=== PATIENT | female | born 1965 | race African-American/Black ===

== ENCOUNTER 2018-09-05 09:52 | Emergency (ER) | payer MEDICAID ==
[~2018-09-05] VITALS: Ht 162.6 cm; Wt 114.0 kg
[2018-09-05] MEDS ORDERED: SODIUM CHLORIDE 0.9% 1,000 ML IV ONE (10:45)
[2018-09-05] MEDS ORDERED: FAMOTIDINE 20MG/2ML VIAL IV STA (10:45)
[2018-09-05] MEDS ORDERED: MORPHINE SULFATE 4 MG/ML CPJ (NOT FOR IM USE) IV STA (11:16)
[2018-09-05 11:18] LABS: EOSINOPHILS % 2.8 % (0.0-5.0); HEMATOCRIT. 38.6 % (36.0-48.0); HEMOGLOBIN. 12.3 g/dL (12.0-16.0); LYMPHOCYTES % 39.7 % (20.0-50.0); MEAN CORPUSCULAR HEMOGLOBIN 25.9 pg (28.0-32.0); MEAN CORPUSCULAR VOLUME 80.8 fL (81.0-99.0); MEAN PLATELET VOLUME 8.7 fl (7.4-10.4); MONOCYTES % 5.5 % (2.0-8.0); PLATELET 259 x1000/uL (130-400); RED BLOOD CELL COUNT 4.77 mill/uL (4.2-5.4)
[2018-09-05 11:19] LABS: CLARITY URINE CLEAR (CLEAR); COLOR URINE YELLOW (YELLOW); KETONES URINE NEGATIVE (NEGATIVE); LEUKOCYTE ESTERASE URINE NEGATIVE (NEGATIVE); NITRITE URINE NEGATIVE (NEGATIVE); OCCULT BLOOD URINE NEGATIVE (NEGATIVE); PROTEIN URINE NEGATIVE (NEGATIVE); SPECIFIC GRAVITY URINE 1.017 (1.005-1.030)
[2018-09-05 11:25] LABS: CHLORIDE 104 mEq/L (98-107)
[2018-09-05 11:29] LABS: ETHANOL BLOOD < 10 mg/dL
[2018-09-05 12:11] LABS: *AMPHETAMINES SCREEN URINE NEGATIVE (NEGATIVE); *BARBITURATES SCREEN URINE NEGATIVE (NEGATIVE); *BENZODIAZEPINES SCREEN URINE NEGATIVE (NEGATIVE); *COCAINE SCREEN URINE NEGATIVE (NEGATIVE); METHADONE URINE SCREEN NEGATIVE (NEGATIVE)
[2018-09-05 12:12] LABS: CANNABINOID URINE SCREEN NEGATIVE (NEGATIVE); OPIATES URINE SCREEN NEGATIVE (NEGATIVE); PHENCYCLIDINE URINE SCREEN NEGATIVE (NEGATIVE)
[2018-09-05 16:45] VITALS: BP 136/73
== END 2018-09-05 16:52 | disposition home or self-care (01) ==
LOC: ER 09:52
DX: R10.0 Acute abdomen (principal); M25.522 Pain in left elbow; I10 Essential (primary) hypertension; E66.9 Obesity, unspecified; Z68.41 Body mass index [BMI] 40.0-44.9, adult
CPT/HCPCS: 36415; 73080; 76705; 80053; 80305; 80320; 81003; 81025; 83690; 85025; 85610; 96374; 96375; 99284; J2270; J3490; J7030; G0480

== ENCOUNTER 2018-10-19 10:28 | Emergency (ER) | payer MEDICAID ==
[~2018-10-19] VITALS: Ht 160 cm; Wt 114.0 kg
[2018-10-19] MEDS ORDERED: HYDROCODONE/ACETAMINOPHEN 5/325MG TABLET PO ONE (13:30)
[2018-10-19 13:32] VITALS: BP 122/82
== END 2018-10-19 15:11 | disposition home or self-care (01) ==
LOC: ER 10:51
DX: M17.12 Unilateral primary osteoarthritis, left knee (principal)
CPT/HCPCS: 73560; 99283

== ENCOUNTER 2019-03-22 08:23 | Emergency (ER) | payer MEDICAID ==
[~2019-03-22] VITALS: Ht 160 cm; Wt 116.0 kg
[2019-03-22] MEDS ORDERED: KETOROLAC 60MG/2ML VIAL IM ONE (09:00)
[2019-03-22 09:11] VITALS: BP 144/81
== END 2019-03-22 09:13 | disposition home or self-care (01) ==
LOC: ER 08:23
DX: M25.562 Pain in left knee (principal); M25.561 Pain in right knee; G89.29 Other chronic pain
CPT/HCPCS: 96372; 99283; A4217; J1885; Z7610

== ENCOUNTER 2019-05-17 08:25 | Emergency (ER) | payer MEDICAID ==
[~2019-05-17] VITALS: Ht 160 cm; Wt 115.0 kg
[2019-05-17 08:32] VITALS: BP 150/74
[2019-05-17] MEDS ORDERED: KETOROLAC 30MG/ML VIAL IM ONE (10:00)
[2019-05-17] MEDS ORDERED: ACETAMINOPHEN 325MG TABLET PO ONE ×2 (13:00→13:15)
[2019-05-17] MEDS ORDERED: ACETAMINOPHEN 325MG TABLET ONE (13:22)
== END 2019-05-17 13:41 | disposition home or self-care (01) ==
LOC: ER 08:25
DX: M79.672 Pain in left foot (principal)
CPT/HCPCS: 73630; 93971; 96372; 99284; J1885; Z7610

== ENCOUNTER 2019-07-24 08:37 | Emergency (ER) | payer MEDICAID ==
[~2019-07-24] VITALS: Ht 160 cm; Wt 113.0 kg
[2019-07-24 08:59] VITALS: BP 102/40
[2019-07-24] MEDS ORDERED: KETOROLAC 60MG/2ML VIAL IM ONE (09:45)
== END 2019-07-24 10:13 | disposition home or self-care (01) ==
LOC: ER 09:03
DX: M17.12 Unilateral primary osteoarthritis, left knee (principal); E66.01 Morbid (severe) obesity due to excess calories; Z68.41 Body mass index [BMI] 40.0-44.9, adult; I10 Essential (primary) hypertension
CPT/HCPCS: 96372; 99283; J1885

== ENCOUNTER 2019-10-24 12:09 | Emergency (ER) | payer MEDICAID ==
[~2019-10-24] VITALS: Ht 162.6 cm; Wt 113.0 kg
[2019-10-24] MEDS ORDERED: SODIUM CHLORIDE 0.9% 1,000 ML IV ONE (12:42)
[2019-10-24 13:03] LABS: BASOPHILS % 0.4 % (0.0-2.0); EOSINOPHILS % 2.9 % (0.0-5.0); HEMATOCRIT. 38.5 % (36.0-48.0); HEMOGLOBIN. 12.5 g/dL (12.0-16.0); LYMPHOCYTES % 47.5 % (20.0-50.0); MEAN CORPUSCULAR HEMOGLOBIN 25.4 pg (28.0-32.0); MEAN CORPUSCULAR VOLUME 78.2 fL (81.0-99.0); MEAN PLATELET VOLUME 8.7 fl (7.4-10.4); MONOCYTES % 7.3 % (2.0-8.0); NEUTROPHILS % 41.9 % (40.0-76.0); PLATELET 262 x1000/uL (130-400); RED BLOOD CELL COUNT 4.92 mill/uL (4.2-5.4); RED CELL DISTRIBUTION WIDTH 14.6 % (11.6-14.6)
[2019-10-24 13:08] LABS: CHLORIDE 106 mEq/L (98-107)
[2019-10-24 13:20] LABS: T4 FREE 1.14 ng/dL (0.76-1.46)
[2019-10-24 14:45] VITALS: BP 120/75
== END 2019-10-24 15:21 | disposition home or self-care (01) ==
LOC: ER 12:09
DX: R53.1 Weakness (principal); I10 Essential (primary) hypertension; E03.9 Hypothyroidism, unspecified
CPT/HCPCS: 36415; 71045; 80053; 84439; 84443; 84484; 85025; 93005; 99285; J7030

== ENCOUNTER 2024-02-14 09:31 | Emergency (ER) | payer MEDICAID ==
[~2024-02-14] VITALS: Ht 162.6 cm; Wt 104.3 kg
[2024-02-14 09:55] VITALS: O2SAT 99
[2024-02-14 11:37] LABS: CHLORIDE 108 mEq/L (98-107); POTASSIUM 4.1 mEq/L (3.5-5.1); SODIUM 143 mEq/L (136-145)
[2024-02-14 11:38] LABS: CALCIUM 9.2 mg/dL (8.7-10.4); CARBON DIOXIDE 29 mEq/L (21-32)
[2024-02-14 11:43] LABS: CREATININE 1.1 mg/dL (0.6-1.0); GLUCOSE 87 mg/dL (70-105); UREA NITROGEN BLOOD 10 mg/dL (9-23)
[2024-02-14] MEDS ORDERED: IBUP-2028 MT (11:52)
[2024-02-14 13:13] VITALS: TEMP 98.3
[2024-02-14] MEDS: ACETAMINOPHEN 325MG TABLET PO ONE (13:13)
[2024-02-14 13:14] VITALS: BP 152/92; PULSE 83; RESP 16
[2024-02-14] MEDS: KETOROLAC 30MG/ML VIAL IM ONE (13:14)
== END 2024-02-14 13:27 | disposition home or self-care (01) ==
LOC: ER 09:31
DX: S83.412A Sprain of medial collateral ligament of left knee, initial encounter (principal); I10 Essential (primary) hypertension; Z90.710 Acquired absence of both cervix and uterus; W18.30XA Fall on same level, unspecified, initial encounter; Y93.89 Activity, other specified; Y92.89 Other specified places as the place of occurrence of the external cause; Y99.8 Other external cause status
CPT/HCPCS: 80048; 36415; 73562; 96372; 99284; J1885; Z7610